=== PATIENT | female | born 1995 | race Caucasian/White ===

== ENCOUNTER → 2017-10-03 | Day surgery (SDC) | payer OTHER, MEDICAID ==
[~2017-10-03] MED LIST: ADDERALL 20 MG20 M1 PO; PERCOCET PO
[2017-10-03 10:44] LABS: HEMATOCRIT 40.4 % (37.0-47.0); HEMOGLOBIN 13.9 gm/dL (12.0-15.0); MCHC 34.5 g/dL (28.0-37.0); MCV 84.1 fL (80.0-100.0); MPV 8.3 fl. (7.2-11.1); RBC 4.8 mil/uL (4.20-5.00); WBC 8.1 thou/uL (4.0-11.0)
[2017-10-03 11:00] LABS: CALCIUM 8.6 mg/dL (8.5-10.1); CREATININE 0.8 mg/dL (0.6-1.3); POTASSIUM 3.7 mmol/L (3.5-5.1)
[2017-10-03 11:05] LABS: ALBUMIN 3.8 g/dL (3.4-5.0); TOTAL BILIRUBIN 0.8 mg/dL (<0.1-1.0); TOTAL PROTEIN 7.1 g/dL (6.4-8.2)
--- NOTE | 2017-10-03 12:47 | H ---
[address] [address] HISTORY AND PHYSICAL Name: UMBERTO SIMS Room: [facility].#: [id number] Admission: 10/03/17 Attend Phys: Ly Munoz MD Discharge: Date of : 97 Report #: [id number] THIS REPORT FOR: //name// CC: FAM unknown Ly Munoz DATE OF SERVICE: 10/03/2017 DATE OF ANTICIPATED SURGERY: 10/03/2017. PREOPERATIVE DIAGNOSIS: Enlarging painful cyst, right upper medial thigh. HISTORY OF PRESENT ILLNESS: This is a 21-year-old female, well known to me, who had a recent cholecystectomy last 06/2017, presents with an enlarging painful right upper medial thigh mass, consistent with a cyst, requesting surgical excision. PAST MEDICAL HISTORY: As stated above. PAST SURGICAL HISTORY: As stated above. SOCIAL HISTORY: Noted being an everyday smoker. She does not have a history of alcohol or drug abuse. REVIEW OF SYSTEMS: Otherwise, unremarkable. PHYSICAL EXAMINATION: GENERAL: She is an obese, well-developed female. HEAD, EARS, EYES, NOSE AND THROAT: Unremarkable. NECK: Supple. LUNGS: Clear. CARDIAC EXAMINATION: Regular rate and rhythm, without murmur. ABDOMEN: Healed umbilical and right upper quadrant scars. No masses or tenderness. EXTREMITIES: In her inguinal and perineal area on the right upper medial thigh, near the perineum, there is swelling and mass with induration, approximately 3 cm in size. IMPRESSION: Either hidradenitis or sebaceous cyst in this region. I have outlined surgical excision of both the risks and benefits of recurrence. She understands and wishes to proceed with surgical excision. <ELECTRONICALLY SIGNED> By: Ly Munoz MD 10/03/17 1247 1148 1201Ly Munoz MD /nt
--- NOTE | 2017-10-05 14:45 | S ---
[place] [address] SURGICAL PATH RPT PROCEDURE Name: PATRICIA BRODY Room: [facility].#: [id number] Admission: 10/03/17 Date of : 97 Discharge: Report #: [id number] Path Case #: [id number] PATHOLOGY REPORT COLLECTION DATE: 10/03/2017 RECEIVED DATE: 10/03/2017 SUBMITTING PHYS: Dr. Ly Munoz OTHER PHYS: SPECIMEN(S) RECEIVED: A.Right upper medial thigh mass 3 cm * * * * * * * * * * * * FINAL DIAGNOSIS: Right upper medial thigh mass: -Benign fat suggestive of lipoma with prominent fat necrosis, fibrosis and foreign body type granulomatous response. (FCO:pit; 10/05/2017) PATHOLOGIST: Alfonso Murray M.D. REPORT ELECTRONICALLY SIGNED BY: Alfonso Murray M.D. DATE/TIME: 10/05/2017 14:44 * * * * * * * * * * * * GROSS PATHOLOGY: The specimen is received in formalin, labeled "Patricia Brody, right upper medial thigh mass". Received is a partially encapsulated segment of pale yellow fibroadipose tissue admixed with pale stone-brown soft tissue measuring 2.3 x 1.6 x 1.5 cm in greatest dimensions. The specimen is inked and submitted representatively in cassette A1. (DAC; 10/04/2017) CLINICAL HISTORY: Right thigh mass 3 cm INITIAL CPT CODE(S): A; 95690 Professional services performed by [facility] at [facility] [address] [place] [address] Technical services performed by [facility] at [address] [place] [address] [address], [place] [address]. [facility] [address] [place] [address] SURGICAL PATH RPT PROCEDURE Name: PATRICIA BRODY Room: [facility] Harper#: [id number] Admission: 10/03/17 Date of : 97 Discharge: Report #: [id number] Path Case #: [id number] [facility] [address] [place] [id number] PHONE: [phone] DIRECTOR: Bony Cruz M.D. * * * END OF REPORT * * *
--- NOTE | 2017-10-21 09:30 | OP ---
[address] [address] OPERATIVE REPORT Name: UMBERTO SIMS Cordelia Room: [facility].#: [id number] Admission: 10/03/17 Attend Phys: Ly Munoz MD Discharge: Date of : 97 Report #: [id number] THIS REPORT FOR: //name// CC: FAM unknown Ly Munoz DATE OF SERVICE: 10/03/2017 PREOPERATIVE DIAGNOSIS: Right upper medial thigh mass. POSTOPERATIVE DIAGNOSIS: Hidradenitis. OPERATIVE PROCEDURE: Wide local excision of hidradenitis of right upper medial thigh, dimensions 4 x 1 x 2 cm. ANESTHESIA: General endotracheal with 0.5% Marcaine with epinephrine infiltrated. OPERATIVE PROCEDURE: The patient was placed under general endotracheal anesthesia, and the right upper medial thigh and perineum were carefully prepped and draped in our usual sterile fashion. The patient was placed in stirrups. A timeout was taken. Antibiotics administered and I began by marking out the palpable soft tissue mass and injecting around it for an area of 5 cm and made a longitudinal 4 cm transverse incision parallel to Trinity lines in her upper medial thigh. I then opened up this deep incision and encountered inflammatory tissue consistent with hidradenitis. It was carefully sharply dissected out with cautery and Metzenbaum scissors and sent as a pathological sample. After palpating the wound bed, there was no other glandular tissue that was in that region. I then used cautery to control bleeding points. We reapproximated the epidermis with 3-0 PDS sutures and sealed the wound with Dermabond and ended the operative procedure. ESTIMATED BLOOD LOSS: 1 mL. SPECIMEN TO PATHOLOGY: Sponge and instrument counts correct. The patient was extubated, returned to recovery in stable condition. <ELECTRONICALLY SIGNED> By: Ly Munoz MD 10/21/17 0930 1330 1414Ly Munoz MD /nt
== END | disposition home or self-care (01) ==
LOC: M.SUR 08:57
PROVIDERS: Surgery
DX: D17.9 Benign lipomatous neoplasm, unspecified (principal); Z90.49 Acquired absence of other specified parts of digestive tract; F17.200 Nicotine dependence, unspecified, uncomplicated

== ENCOUNTER → 2018-04-17 | Day surgery (SDC) | payer OTHER, MEDICAID ==
[2018-04-17 11:16] LABS: HEMATOCRIT 43.2 % (37.0-47.0); HEMOGLOBIN 14.5 gm/dL (12.0-15.0)
--- NOTE | 2018-04-24 09:46 | OP ---
[address] [address] OPERATIVE REPORT Name: UMBERTO SIMS Room: [facility]#: [id number] Admission: 04/17/18 Attend Phys: Ly Munoz MD Discharge: Date of : 97 Report #: [id number] THIS REPORT FOR: //name// CC: Ly [facility] Physician staff DATE OF SERVICE: 04/17/2018 PREOPERATIVE DIAGNOSIS: Hidradenitis, bilateral upper medial thighs. POSTOPERATIVE DIAGNOSIS: Hidradenitis, bilateral upper medial thighs. OPERATIVE PROCEDURE: Wide local excision of hidradenitis, bilateral upper medial thighs. ANESTHESIA: General endotracheal, 0.5% Marcaine infiltrated into the wound sites. DESCRIPTION OF PROCEDURE: After the patient was placed under general endotracheal anesthesia, the patient's lower extremities were placed in stirrups and the areas marked where the hidradenitis existed carefully cleansed with ChloraPrep and draped sterilely. A time-out was taken. Antibiotics administered. I began by working on the patient's right upper thigh, which was marked. An elliptical incision around the hidradenitis sweat gland was carefully excised out sharply with pickups and a #15 scalpel blade and then cautery was used to control bleeding. Then, the left upper thigh area marked off was carefully elliptically incised as well in a similar fashion. Once both wound beds were controlled with cautery for bleeding, specimens were sent separately for pathology. I then closed both wounds with on the right side a buried running 3-0 PDS suture and on the left side, a buried 4-0 PDS suture. Then, the both wounds were sealed with Dermabond, Telfa and OpSite completing the operative procedure. Estimated blood loss 2 mL. Sponge and instrument counts correct. Specimen to pathology. The patient was taken off anesthesia and returned to recovery in stable condition. <ELECTRONICALLY SIGNED> By: Ly Munoz MD 04/24/18 0946 1258 1313Kstu Munoz MD /nt
--- NOTE | 2018-04-24 09:46 | H ---
[place] [address] HISTORY AND PHYSICAL Name: UMBERTO SIMS Room: [facility].#: [id number] Admission: 04/17/18 Attend Phys: Ly Munoz MD Discharge: Date of : 97 Report #: [id number] THIS REPORT FOR: //name// CC: FAM unknown Ly Munoz DATE OF SERVICE: 04/17/2018 ANTICIPATED DATE OF TREATMENT: 04/17/2018. ADMITTING DIAGNOSIS: Hidradenitis suppurativa. HISTORY OF PRESENT ILLNESS: This is a 22-year-old female with a history of chronic cholecystitis and hidradenitis, status post cholecystectomy and now recently as of September, hidradenitis. She returns to my office in late March with complaints of new stage I flare-ups of bilateral upper medial thigh lesions, requesting surgical excision. Her other significant history is sebaceous cyst surgery. She is a current every day smoker. No history of alcohol to excess and she has never used illegal drugs. REVIEW OF SYSTEMS: Denies abdominal pain, nausea, chest pain, cough or dyspnea. PHYSICAL EXAMINATION: GENERAL: Obese female, sitting up, no acute distress. HEAD, EYES, EARS, NOSE AND THROAT: Unremarkable. NECK: Supple. Neck normal size. LUNGS: Clear. CARDIAC EXAMINATION: Regular rate and rhythm, without murmur. ABDOMEN: Soft with healed umbilical and right upper quadrant incisional scars, with no herniation. SKIN: On examination of her skin in the location of the left upper medial thigh, there is a swelling and drainage coming from a 1 cm site and in the right upper medial thigh as well a smaller, but draining ulcerative lesion. IMPRESSION AND PLAN: Recurrent hidradenitis suppurativa. I started her on clindamycin topical gel and Resorcinol cream. I have outlined surgical excision, its risks and benefits and answered her questions. She understands and wishes to proceed. <ELECTRONICALLY SIGNED> By: Ly Munoz MD 04/24/18 0946 0912 0950Ly Munoz MD /nt
--- NOTE | 2018-04-24 11:07 | PATH ---
[facility] [address] [place] [address] PATHOLOGY RPT PROCEDURE Name: PATRICIA BRODY Cordelia Room: [facility].#: [id number] Admission: 04/17/18 Date of : 97 Discharge: Report #: [id number] Path Case #: [id number] [facility] Accession Number: [id number] . 01 Material submitted: . PART A: RIGHT INNER THIGH PART B: LEFT INNER THIGH . 01 Clinical history: . Hidradenitis suppurativa . 02 Diagnosis: A. Right inner thigh: - Benign skin with features typical of hidradenitis suppurativa including acute and chronic inflammation, epithelial cyst formation with fibrosis and abscess formation. . B. Left inner thigh: - Benign skin with features typical of hidradenitis suppurativa including acute and chronic inflammation, epithelial cyst formation with rupture and foreign body type granulomatous response, abscess formation and fibrosis. . (FCO:marla; 04/19/18) [facility]/04/19/2018 . 02 Electronically signed: . Alfonso Murray MD, Pathologist NPI- [id number] . 01 Gross description: . A. Received in formalin "Patricia Brody, right inner thigh" is a segment of stone-brown skin, 2.4 x 1 x 0.6 cm. There is a central epithelial nodule, 0.3 x 0.3 x 0.2 cm The specimen is inked and serially sectioned (7 pieces) revealing a red-brown area of discoloration, 0.4 cm greatest dimension. The specimen is entirely submitted A1-A2, A2 tips. . B. Received in formalin labeled "Patricia Brody, left inner thigh"is a segment of brown skin, 2.1 x 0.9 x 0.5 cm. No epithelial lesions are identified. The specimen is inked and sectioning reveals dense pink, manning, and white cut surfaces. The specimen is entirely submitted(6 pieces) B1-B2, B2 tips. (TRACEY; 04/14/2018) JBR/JBR . 02 Pathologist provided ICD-10: L73.2 . 02 [place] [address] PATHOLOGY RPT PROCEDURE Name: PATRICIA BRODY Room: [facility]#: [id number] Admission: 04/17/18 Date of : 97 Discharge: Report #: [id number] Path Case #: [id number] Performed at: [facility] [place] [address] [facility] [address], [place], [place] [id number] MD Renny Adams MD Phone: [phone] Performed at: 02 [facility] [address], [place], [place] [id number] MD Alfonso Murray MD Phone: [phone]
== END | disposition home or self-care (01) ==
LOC: M.SUR 07:46
PROVIDERS: Surgery
DX: L73.2 Hidradenitis suppurativa (principal); F17.210 Nicotine dependence, cigarettes, uncomplicated; Z98.890 Other specified postprocedural states; Z90.49 Acquired absence of other specified parts of digestive tract

== ENCOUNTER → 2018-10-20 | Day surgery (SDC) | payer OTHER ==
[~2018-10-20] MED LIST changes: +PERCOCET 5-3251 EACH PO
--- NOTE | ~2018-10-20 | OP ---
[address] [address] OPERATIVE REPORT Name: UMBERTO SIMS Room: [facility].#: [id number] Admission: 10/20/18 Attend Phys: Tobias Lyon MD Discharge: Date of : 97 Report #: [id number] THIS REPORT FOR: //name// CC: NELLI RENAE Physician staff Tobias Lyon DATE OF SERVICE: 10/20/2018 PREOPERATIVE DIAGNOSIS: Right thigh skin lesion. POSTOPERATIVE DIAGNOSIS: Right thigh skin lesion. OPERATIVE PROCEDURE: Excision of the right thigh skin lesion. OPERATING SURGEON: Dr. Tobias Lyon. INDICATION FOR THE PROCEDURE: The patient is a 22-year-old female who presented with a right thigh skin lesion that she has been having for the last few months, which is causing incisional discomfort and she wished to have this excised. The patient was advised excision of the same. DESCRIPTION OF PROCEDURE: After explaining to the patient in detail and informed consent was obtained, the procedure was done in the operating room under general anesthesia. The right thigh was prepped and draped in a sterile fashion. Approximately about 5 mL of lidocaine with epinephrine was injected into the surrounding area of the incision. The lesion itself measured about 1.5 cm. An elliptical incision measuring approximately about 2 cm was made around the skin lesion, with overlying skin excised up to the subcutaneous tissue. The skin was then closed with 3 interrupted 3-0 Prolene mattress sutures. Dressing was placed. The patient was stable at the end of the procedure. The patient awoke from anesthesia and was transferred to the recovery room in stable condition. ESTIMATED BLOOD LOSS: 5 mL. CONDITION: The patient is stable. FLUIDS GIVEN: Per Anesthesia note. SPECIMEN SENT: Excised skin lesion. COMPLICATIONS: [place] [address] OPERATIVE REPORT Name: BETHANY,UMBERTO GIRARD Room: [facility]#: [id number] Admission: 10/20/18 Attend Phys: Tobias Lyon MD Discharge: Date of : 97 Report #: [id number] ANESTHESIA: General anesthesia. By: 1453 1521Smago Lyon MD /nt
[2018-10-20 12:44] LABS: HEMATOCRIT 40.4 % (37.0-47.0); HEMOGLOBIN 13.7 gm/dL (12.0-15.0)
--- NOTE | 2018-10-23 17:07 | PATH ---
[address] [address] PATHOLOGY RPT PROCEDURE Name: PATRICIA BRODY Room: [facility].#: [id number] Admission: 10/20/18 Date of : 97 Discharge: Report #: [id number] Path Case #: [id number] [facility] Accession Number: [id number] . 01 Material submitted: . RIGHT UPPER MEDIAL THIGH LESION . 01 Clinical history: . Right upper medial thigh lesion. . 02 Diagnosis: Right upper medial thigh lesion: - Benign skin with ruptured epidermal inclusion cyst showing abscess formation, fibrosis and foreign body type granulomatous response. (FCO:moustapha; 10/23/2018) [facility]/10/23/2018 . 02 Electronically signed: . Alfonso Murray MD, Pathologist NPI- [id number] . 01 Gross description: . Received in formalin labeled "Patricia Brody, right upper medial thigh lesion" is an unoriented ellipse of dark brown skin and underlying yellow-stone lobulated fibroadipose tissue measuring 1.6 x 0.8 cm and excised to a maximum depth of 0.8 cm. The skin surface is grossly unremarkable. The margin is inked and the specimen is sectioned to reveal a stone-yellow cyst below the skin surface measuring 0.9 cm in greatest dimension. The specimen is submitted entirely in cassettes A1-A2, with the tips placed in A2 (5 pieces total). ([facility]; 10/22/2018) SYC/SYC . 02 Pathologist provided ICD-10: L72.0 . 02 CPT . 528136 Specimen Comment: A courtesy copy of this report has been sent to Specimen Comment: [phone], . Specimen Comment: Report sent to / DR RENAE Performed at: [address], [place], [place] [id number] MD Renny Adams MD Phone: [phone] Performed at: 02 [facility] [address], [place], [place] [id number] MD Alfonso Murray MD Phone: [phone]
== END | disposition home or self-care (01) ==
LOC: M.SUR 05:42
PROVIDERS: Surgery
DX: L72.0 Epidermal cyst (principal); Z79.891 Long term (current) use of opiate analgesic